=== PATIENT | male | born 1985 | race Hispanic/Latino ===

== ENCOUNTER 2017-08-25 12:17 | Emergency (ER) | payer SELFPAY ==
[~2017-08-25] VITALS: Ht 180.3 cm; Wt 100.0 kg
[~2017-08-25 12:17] MED LIST: BACTRIM DS1 TAB OR; KEFLEX250 MG OR; NAPROSYN500 MG PO; NO MEDS; PENICILLN VK500 MG PO; ULTRAM50 M1 OR; ULTRAM50 MG OR
[2017-08-25] MEDS ORDERED: BACTRIM DS1 TAB PO (12:43)
[2017-08-25] MEDS ORDERED: CEPHALEXIN500 M1 PO (12:43)
[2017-08-25] MEDS ORDERED: MOTRIN400 MG PO (12:44)
[2017-08-25 13:36] VITALS: BP 130/88
== END 2017-08-25 13:40 | disposition home or self-care (01) | DRG 605 ==
LOC: ED 12:17
DX: S91.332A Puncture wound without foreign body, left foot, initial encounter (principal); R22.42 Localized swelling, mass and lump, left lower limb; F17.210 Nicotine dependence, cigarettes, uncomplicated; W45.0XXA Nail entering through skin, initial encounter; Y93.01 Activity, walking, marching and hiking; Y92.007 Garden or yard of unspecified non-institutional (private) residence as the place of occurrence of the external cause

== ENCOUNTER 2020-06-07 18:34 | Emergency (ER) | payer SELFPAY ==
[~2020-06-07] VITALS: Ht 180.3 cm; Wt 109.0 kg
[~2020-06-07 18:34] MED LIST changes: +BACTRIM DS1 TAB PO; +CEPHALEXIN500 M1 PO; +MOTRIN400 MG PO
[2020-06-07 18:58] LABS: HEMATOCRIT 46.4 % (39.0-50.0); HEMOGLOBIN 15.7 g/dl (14.0-18.0); IMMATURE GRANULOCYTES 0.4 % (0.0-5.0); MEAN CELL VOLUME 92.8 fL CALC (80.0-100.0); MEAN CORPUSCULAR HGB 31.4 pG CALC (26.0-32.0); MEAN CORPUSCULAR HGB CONC 33.8 g/dL CAL (32.0-36.0); NEUT# 5.57 thou/uL (1.82-7.42); RED CELL DISTRI WIDTH 11.9 % (11.5-15.5)
[2020-06-07 19:12] LABS: ALBUMIN 4.2 g/dL (3.2-5.0); ALKALINE PHOSPHATASE 148 u/l (38-126); BILIRUBIN, TOTAL 0.6 mg/dL (0.0-1.4); BUN 6 mg/dL (9-20); BUN/CREATININE RATIO 11 (12-20 (CALC)); CHLORIDE 102 mmol/l (95-108); CREATININE 0.6 mg/dL (0.7-1.3); ETHYL ALCOHOL 120 mg/dl (0-30); GFR > 60 ML/MIN (>=60 (CALC)); GFR FOR AFR.AMER. > 60 ML/MIN (>=60 (CALC)); POTASSIUM 3.7 mmol/l (3.5-5.1); SODIUM 135 mmol/l (137-146); TOTAL PROTEIN 7.2 g/dL (6.3-8.2)
[2020-06-07 19:13] LABS: ANION GAP 15 (6-22 (CALC)); CARBON DIOXIDE 22 mmol/l (22-30); SGOT/AST 57 u/l (17-59)
[2020-06-07 19:23] LABS: MYOGLOBIN 14 ng/mL (0 - 121)
[2020-06-07 21:45] VITALS: BP 98/56
== END 2020-06-07 21:55 | disposition home or self-care (01) | DRG 897 ==
LOC: ED 18:34
PROVIDERS: Emergency Medicine
DX: F16.10 Hallucinogen abuse, uncomplicated (principal); E11.9 Type 2 diabetes mellitus without complications; F17.200 Nicotine dependence, unspecified, uncomplicated; Z20.822 Contact with and (suspected) exposure to COVID-19